=== PATIENT | female | born 1955 | race Caucasian/White ===

== ENCOUNTER 2024-06-18 18:21 | Emergency (ER) | payer MEDICARE, SELFPAY ==
--- NOTE | ~2024-06-18 | XR_ITS ---
EXAMINATION: XR CHEST CLINICAL INFORMATION: Syncope. COMPARISON: None available. TECHNIQUE: Portable AP view of the chest was obtained. FINDINGS: No significant abnormality is noted involving the heart, lungs, mediastinum, bony thorax or soft tissues. XR/XR chest 1V IMPRESSION: Unremarkable examination. Electronically signed by: Kingston Gayle MD 06/18/2024 08:05 PM EDT
--- NOTE | ~2024-06-18 | CT_ITS ---
EXAMINATION: CT HEAD WITHOUT CONTRAST CT CERVICAL SPINE WITHOUT CONTRAST CLINICAL INFORMATION: Syncope. Fall. COMPARISON: None TECHNIQUE: CT of the head and cervical spine were performed without intravenous contrast. Multiplanar reformats were rendered and reviewed. This CT examination was performed using dose optimization techniques as appropriate, variously including the following: *Automated exposure control *Adjustment of mA and/or kV according to patient size (this includes techniques or standardized protocols for targeted exams where dose is matched to indication/reason for exam; i.e. extremities or head) *Use of iterative reconstruction technique DLP: 802 mGy-cm. FINDINGS: CT head: No intracranial hemorrhage, large infarction, or mass lesion is seen. Mild diffuse cortical atrophy. No extra-axial collection is appreciated. The ventricles are normal in size and configuration without evidence of hydrocephalus. The visualized paranasal sinuses and mastoid air cells are clear. Bilateral lens extractions. CT cervical spine: The vertebral body heights appear maintained. No cervical spine fracture is seen. The cervical alignment appears normal. Mild disc degenerative change and bilateral neuroforaminal narrowing most notable at C5-C7, worse on the right. Multilevel facet degenerative changes. The paraspinal soft tissues appear within normal limits. The partially imaged lung apices appear clear. CT/CT head/brain wo IV con IMPRESSION: CT head: No acute intracranial finding. CT cervical spine: No cervical spine fracture or traumatic malalignment identified. Electronically signed by: Kingston Gayle MD 06/18/2024 08:53 PM EDT
--- NOTE | ~2024-06-18 | CT_ITS ---
EXAMINATION: CT HEAD WITHOUT CONTRAST CT CERVICAL SPINE WITHOUT CONTRAST CLINICAL INFORMATION: Syncope. Fall. COMPARISON: None TECHNIQUE: CT of the head and cervical spine were performed without intravenous contrast. Multiplanar reformats were rendered and reviewed. This CT examination was performed using dose optimization techniques as appropriate, variously including the following: *Automated exposure control *Adjustment of mA and/or kV according to patient size (this includes techniques or standardized protocols for targeted exams where dose is matched to indication/reason for exam; i.e. extremities or head) *Use of iterative reconstruction technique DLP: 802 mGy-cm. FINDINGS: CT head: No intracranial hemorrhage, large infarction, or mass lesion is seen. Mild diffuse cortical atrophy. No extra-axial collection is appreciated. The ventricles are normal in size and configuration without evidence of hydrocephalus. The visualized paranasal sinuses and mastoid air cells are clear. Bilateral lens extractions. CT cervical spine: The vertebral body heights appear maintained. No cervical spine fracture is seen. The cervical alignment appears normal. Mild disc degenerative change and bilateral neuroforaminal narrowing most notable at C5-C7, worse on the right. Multilevel facet degenerative changes. The paraspinal soft tissues appear within normal limits. The partially imaged lung apices appear clear. CT/CT cervical spine wo IV con IMPRESSION: CT head: No acute intracranial finding. CT cervical spine: No cervical spine fracture or traumatic malalignment identified. Electronically signed by: Kingston Gayle MD 06/18/2024 08:53 PM EDT
[2024-06-18 18:35] VITALS: BP 153/86; BP 69/35; PULSE 50; PULSE 67; RESP 18; TEMP 36.6; O2SAT 94; O2SAT 97; BMI 22.5
[2024-06-18 18:35] LABS: Glucose, Whole Blood 85 mg/dL (60-115)
--- NOTE | 2024-06-18 18:41 | ECG_ITS ---
Test Reason : SYNCOPE Blood Pressure : / mmHG Vent. Rate : 055 BPM Atrial Rate : 055 BPM P-R Int : 198 ms QRS Dur : 090 ms QT Int : 442 ms P-R-T Axes : 078 055 058 degrees QTc Int : 422 ms Sinus bradycardia Otherwise normal ECG No previous ECGs available Referred By: Bill Padilla Electronically Signed By:OSWALDO BATISTA
[2024-06-18] MEDS: 0.9 % Sodium Chloride 1,000 ML 999 ML IV (19:28)
[2024-06-18 19:30] VITALS: PULSE 58; O2SAT 100
[2024-06-18 19:37] VITALS: BP 143/72; BP 151/84; PULSE 53; PULSE 55
[2024-06-18 19:38] VITALS: BP 155/81; PULSE 58
--- NOTE | 2024-06-18 19:54 | ED.SYNCOPE ---
HPI - Syncope General Chief Complaint: Syncope Stated Complaint: syncopal episode Time Seen by Provider: 06/18/24 18:33 Source: patient, family and EMS Mode of arrival: EMS Limitations: no limitations History of Present Illness ED Provider: DR. Padilla HPI narrative: 68-year-old female was at her daughter's wedding today patient stated that she did not eat or drink anything since 11:00 today and has been exciting day for her, patient sustained a syncopal episode at the wedding today after she swiftly 10 round to talk to somebody causing her to fall down and strike her head to the lower, lasted for few seconds and patient after the regained her full consciousness, patient brought in by ambulance for full evaluation after, patient declined taking any anticoagulation, initially found to be hypotensive by EMS, patient started to improve in route, no chest pain, no shortness of breath, no headache, no neck pain, no weakness, no numbness. Past medical history is significant for hypothyroidism no significant history of cardiac disease or hypertension or diabetes, Blood sugar was 82 at the scene. Related Data Allergies Allergy/AdvReac Type Severity Reaction Status Date / Time erythromycin base Allergy Unknown Verified 06/18/24 18:52 Review of Systems Review of Systems: all other systems are reviewed and are negative Constitutional: Reports as per HPI and Reports no additional constitutional complaints Eyes: Reports as per HPI and Reports no additional eye complaints Reports system reviewed and no additional complaints, except as documented Cardiovascular: Reports as per HPI and Reports no additional cardiovascular complaints Respiratory: Reports as per HPI and Reports no additional respiratory complaints Gastrointestinal: Reports as per HPI and Reports no additional gastrointestinal complaints Genitourinary: Reports no additional female genitourinary complaints Musculoskeletal: Reports no additional musculoskeletal complaints Skin/Breast: Reports system reviewed and no additional complaints, except as docu Psychiatric: Reports no additional psychiatric complaints Endocrine: Reports no additional endocrine complaints Hematologic/Lymphatic: Reports no additional hematologic/lymphatic complaints Allergic/Immunologic: Reports no additional allergic/immunologic complaints Reports system reviewed and no additional complaints, except as documented and Reports Abnormal speech present [facility] Social History Social History Advance Directives: Yes Advance Directives Information Provided: No Advance Directives on File: No Physical Exam Vital Signs: Vital Signs: Last Vital Signs Temp 97.9 F 06/18/24 18:35 Pulse 58 06/18/24 19:38 Resp 18 06/18/24 18:35 BP 155/81 H 06/18/24 19:38 Pulse Ox 97 06/18/24 18:35 O2 Del Method Room Air 06/18/24 18:35 BMI result Body Mass Index 22.5 Vital signs have been reviewed and appear to be correct. Blood pressure elevated. Heart rate normal. Respiratory rate normal. Temperature normal. Oxygen saturation normal. Appearance: Alert. Oriented X3. No acute distress. Head: Normal external exam. Normocephalic. Atraumatic. No Gruber signs noted. No raccoon eyes noted Eyes: PERRLA. EOMI. Conjunctiva and sclera normal. Eyelids normal. ENT: TM's Normal. Pharynx normal. Uvula midline. Moist mucous membranes. No trismus noted. No drooling noted. No muffled voice noted. Neck: Normal inspection. Neck supple. FROM. No adenopathy. Thyroid Normal. No meningeal signs. No neck mass noted. CVS: Normal heart rate and rhythm. Heart sound normal. No murmurs noted. Pulses normal throughout. Respiratory: No respiratory distress. Painless inspiration. Breath sounds normal. No wheezes/rales/rhonchi noted. Chest nontender. No accessory muscle usage noted or decreased air movement noted. Abdomen: Soft and nontender. Bowel sounds normal in all 4 quadrants. No distention noted. No organomegaly noted. No visible injury noted. Back: No CVA tenderness. Full range of motion noted. Skin: Skin warm and dry. Normal skin color. Normal skin turgor. No rashes/lesions/lacerations noted. Extremities: No lower extremity edema. Extremities exhibit normal range of motion. Extremities nontender. Neuro: Oriented X 3. Cranial nerve exam: II-XII are grossly intact No motor deficit. No sensory deficit. Reflexes normal. Course Reevaluation(s) Reevaluation #1: 68-year-old female came in after sustained a syncopal episode at her daughter's wedding, workup today was unremarkable, initial blood pressure by EMS at the scene was 69/35 that improved after IV fluids in the emergency department. Labs are unremarkable, no EKG ischemic changes. Patient's symptoms is likely secondary to decreased p.o. intake all day today. Patient was also positive for COVID-19 infection. Time: 21:00 Medications Administered Discontinued Medications Generic Name Dose Route Start Last Admin Trade Name [place] PRN Reason Stop Dose Admin Sodium Chloride 1,000 mls @ 999 mls/hr 06/18/24 18:41 06/18/24 19:28 Ns IV 06/18/24 19:41 999 mls/hr .Q1H1M ONE Administration Medical Decision Making Differential Diagnosis Differential Diagnoses: The differential diagnosis associated with the presentation includes ( ACS, intracranial bleed, cervical spine injury, pneumonia, pneumothorax, electrolyte derangement, dehydration, severe anemia.) Admission/Observation Consideration of admission/observation: Escalation of care including admission/observation considered Lab Data MDM Lab Attestation statement: I reviewed the patient's lab results. 06/18/24 19:56 06/18/24 19:56 Labs: Lab Results 06/18/24 06/18/24 06/18/24 Range/Units 18:30 19:56 19:57 WBC 14.4 H (4.8-10.8) X10*3/uL RBC 4.15 L (4.20-5.50) X10*6/uL Hgb 13.1 (12.0-16.0) g/dl Hct 39.1 (37.0-47.0) % MCV 94.2 (80.0-98.0) fL MCH 31.6 (27.0-33.0) pg MCHC 33.5 (31.0-35.0) g/dl RDW 14.7 (11.0-16.0) % Plt Count 230 (160-400) X10*3/uL MPV 9.1 L (9.4-12.3) fL Immature Gran % (Auto) 0.3 (0.0-0.4) % Neut % (Auto) 85.6 H (45-73) % Lymph % (Auto) 8.4 L (20-40) % Mineral % (Auto) 4.9 (2-11) % Eos % (Auto) 0.5 (0-4) % Baso % (Auto) 0.3 (0-2) % Lymph # (Auto) 1.2 (1.2-4.9) X10*3/uL Mineral # (Auto) 0.7 (0.1-1.2) X10*3/uL Eos # (Auto) 0.1 (0.0-0.4) X10*3/uL Baso # (Auto) 0.0 (0.0-0.2) X10*3/uL Abs Immat Gran (auto) 0.04 H (0.00-0.03) X10*3/uL Absolute Neuts (auto) 12.3 H (2.0-8.3) x10*3/uL Absolute Nucleated RBC 0.000 (0.0-0.012) X10*3/uL Nucleated RBC % (auto) 0.0 (0.0-0.2) /100WBC Sodium 141 (135-145) mmol/L Potassium 3.8 (3.3-5.1) mmol/L Chloride 107 (96-108) mmol/L Carbon Dioxide 26 (22-29) mmol/L Anion Gap 12 (12-20) BUN 13 (9-16) mg/dL Creatinine 0.72 (0.5-1.4) mg/dL Estim Creat Clear Calc 55.6 Estimated GFR > 60 POC Glucose 85 (60-115) mg/dL Random Glucose 109 (60-115) mg/dL Calcium 8.4 (8.4-10.2) mg/dL Total Bilirubin 0.3 (0.0-1.0) mg/dL Direct Bilirubin 0.1 (0.0-0.5) mg/dL AST 22 (5-31) U/L ALT 24 (0-31) U/L Alkaline Phosphatase 55 (39-117) U/L Troponin I High Sens < 2.7 (<3.5-17.0) ng/L B-Natriuretic Peptide 73 (<100) pg/mL Total Protein 6.5 (6.5-8.0) g/dL Albumin 4.1 (3.5-5.0) g/dL Lipase 17 (8-78) U/L Urine Color Yellow Urine Appearance Clear Urine pH 7.0 (5.0-9.0) Ur Specific Valentine 1.010 (1.005-1.025) Urine Protein Negative (Neg-Trace) mg/dL Urine Glucose (UA) Negative (Negative) mg/dL Urine Ketones Negative (Negative) mg/dL Urine Blood Negative (Negative) Urine Nitrite Negative (Negative) Ur Leukocyte Esterase Negative (Negative) Influenza Type A (PCR) NEGATIVE (Negative) Influenza Type B (PCR) NEGATIVE (Negative) RSV RNA Qual (PCR) NEGATIVE (Negative) SARS-CoV-2 RNA (RT-PCR) POSITIVE A (Negative) Independent Interpretation I performed an independent interpretation of an: Plain X-Ray ( Chest: No acute intrathoracic pathology.) and CT Scan ( Head/cervical CT: No acute pathology.) Radiology Impression Discussion of test interpretation with radiology: I have reviewed the radiologist's reading. Discharge Plan Discharge Clinical Impression: Dehydration, Syncope due to orthostatic hypotension, COVID-19 Patient Disposition: Home, Self-Care Instructions: Dehydration (ED), COVID-19 (Coronavirus Disease 2019) (ED) Print Language: Kazakh
[2024-06-18 20:05] LABS: MANUAL DIFF FLAG NO
[2024-06-18 20:08] LABS: Appearance Urine Clear; Color Urine Yellow; Glucose Urine UA Negative (Negative); Leukocyte Esterase Urine Negative (Negative); Nitrite Urine Negative (Negative); Urine Blood Negative (Negative); Urine Ketones Negative (Negative); Urine Protein Negative (Neg-Trace)
[2024-06-18 20:11] LABS: Basophils Percent Auto 0.3 % (0-2); Eosinophils Absolute Auto 0.1 X10*3/uL (0.0-0.4); Eosinophils Percent Auto 0.5 % (0-4); Hematocrit 39.1 % (37.0-47.0); Hemoglobin 13.1 g/dl (12.0-16.0); Imm Gran Abs Auto 0.04 X10*3/uL (0.00-0.03); Imm Gran Pct Auto 0.3 % (0.0-0.4); Lymphocytes Absolute Auto 1.2 X10*3/uL (1.2-4.9); Lymphocytes Percent Auto 8.4 % (20-40); Mean Corpuscular HGB Conc 33.5 g/dl (31.0-35.0); Mean Corpuscular Hemoglobin 31.6 pg (27.0-33.0); Mean Corpuscular Volume 94.2 fL (80.0-98.0); Mean Platelet Volume 9.1 fL (9.4-12.3); Monocytes Absolute Auto 0.7 X10*3/uL (0.1-1.2); Monocytes Percent Auto 4.9 % (2-11); Neutrophils Absolute Auto 12.3 x10*3/uL (2.0-8.3); Neutrophils Percent Auto 85.6 % (45-73); Platelet Count 230 X10*3/uL (160-400); Red Blood Count 4.15 X10*6/uL (4.20-5.50); Red Cell Distribution Width 14.7 % (11.0-16.0); White Blood Count 14.4 X10*3/uL (4.8-10.8)
--- OUTSIDE RECORDS SUMMARY | 2024-06-18 20:16 | XMS_ITS | Continuity of Care Document ---
Author Organization [facility] Address [address] [place] [address]- Care Team Providers Care Grass Farm Laborer Name Role Phone Gem MCGUIRE, Amy Vargas Primary Care Physician Encounter [facility] Date(s): 11/07/21 - 12/07/21 [facility] [address] [place], [place] [address] Attending Physician: Admtr, Ya Admitting Physician: AdmtrYa Referring Physician: Admtr, [id number] Allergies, Adverse Reactions, Alerts Substance Reaction Severity Status erythromycin Active Other Environmental Allergy Active Immunizations Given and Recorded Vaccine Date Status Refusal Reason influenza virus vaccine, inactivated 06/25/17 Give n influenza virus vaccine, inactivated 1 06/10/16 Re corded influenza virus vaccine, inactivated 2 07/14/15 Re corded influenza virus vaccine, inactivated 05/29/14 Mac rded influenza virus vaccine, inactivated 3 07/04/08 Gi jordin influenza virus vaccine, inactivated 4 08/30/07 Gi jordin tetanus/diphtheria/pertussis, acel(Tdap) 09/03/11 Recorded Pneumococcal Poly (PPV23) (oldterm) 07/23/05 Recor ded 1Result Comment: [06/12/2016] [facility] 3Admin Note: ID, Heavy Mario Alberto of [employer] admistered @ [facility] 4Admin Note: [employer] manufacturers. no contraindications per patient Medications ascorbic acid 1000 mg oral tablet TAKE 1 TABLET DAILY., 01/29/15 10:32:00 Start Date: 01/29/15 Status: Ordered aspirin 81 mg oral tablet See Instructions, 1 tablet By Mouth once a week, 0 Refills, Maintenance, 04/14/16 11:08:46 Start Date: 04/14/16 Status: Ordered B-Complex with B-12 oral tablet TAKE 1 TABLET DAILY., 06/13/14 10:53:00 Start Date: 06/13/14 Status: Ordered calcium and vitamin D combination 600 mg-200 u oral tablet 1, tablet, By Mouth, Daily, 0 Refills Start Date: 01/10/07 Status: Ordered Lidoderm 5% film 1 patch, Topically, Daily, # 5 patch, 0 Refills, Maintenance, 07/09/18 10:10:48 EDT Start Date: 07/09/18 Stop Date: 07/14/18 Status: Ordered ProAir HFA 90 mcg/inh inhalation aerosol with adapter 1 puffs, Inhalation, 4 times a day, PRN for wheezing, # 8.5 Gm, 1 Refills, Maintenance, 09/06/15 15:18:00, Aerosol, 1 puffs Inhalation 4 times a day,PRN:for wheezing Start Date: 09/06/15 Status: Ordered Problem List Condition Effective Dates Status Health Status Inform ant Asthma(Confirmed) Active Back pain(Confirmed) 1 Active Bilateral cataracts(Confirmed) Active Depression(Confirmed) Active Spinal disease(Confirmed) Active 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 Familial tremor(Confirmed) Active Generalized anxiety disorder(Confirmed) Active Hypercholesterolemia(Confirmed) Active Hypothyroidism(Confirmed) Active Impaired fasting glycaemia(Confirmed) Active Low back pain(Confirmed) Active 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) Active Encounter for health mainten ance examination(Confirmed) Active Migraine(Confirmed) Active Nephrolithiasis(Confirmed) Active Stool guaiac positive(Confirmed) Active Postmenopausal status(Confirmed) Active PTSD (post-traumatic stress disorder)(Confirmed) Active Preoperative clearance(Confirmed) Active Right sided sciatica(Confirmed) Active Stress(Confirmed) Active Tobacco abuse(Confirmed) Active Tobacco dependence due to cigarettes(Confirmed) Active Tobacco dependence due to cigarettes(Confirmed) Active Tremor(Confirmed) Active Vitamin d deficiency(Confirmed) Active 1s/p surgery L4-5 level Social History Social History Type Response Smoking Status Current every day mely balderas entered on: 07/09/18 Sex
--- OUTSIDE RECORDS SUMMARY | 2024-06-18 20:16 | XMS_ITS | Continuity of Care Document ---
Author Organization [facility] Address [address], [address], [address] [place] [id number]- Care Team Providers Care Mathematical Statistician Name Role Phone Gem MCGUIRE, Amy Vargas Primary Care Physician Encounter [facility] [place] Date(s): 07/04/22 - 08/03/22 [facility] [address], [address], [address] [place] [address] Attending Physician: Ya Ramirez Admitting Physician: AdmtrYa Referring Physician: Admtr, Ar8 [...] (oldterm) 07/23/05 Recor ded 1Result Comment: [06/12/2016] [facility] 3Admin Note: ID, [employer] Mario Alberto of [place] admistered @ [employer] [facility] 4Admin Note: [employer] manufacturers. [...] 0 Refills Start Date: 01/10/07 Status: Ordered citalopram 20 mg oral tablet 20 mg, 1, tablet, By Mouth, Daily, # 90 tablet, Refills 2, Tot. Refills 2, Maintenance, 04/25/22 10:41:00 EDT, Route to Pharmacy Electronically, [facility]/pharmacy #[id number], 155, cm, 05/06/21 9:26:00 EDT, Height Start Date: 04/25/22 Stop Date: 01/20/23 Status: Ordered clonazePAM 0.5 mg oral tablet 1 tablet = 0.5 mg, By Mouth, 3 times a day, # 90 tablet, 3 Refills, Maintenance, 07/29/22 12:10:00 EST, Tablet, [facility]/pharmacy #[id number], 155, cm, 05/06/21 9:26:00 EDT, Height Start Date: 07/29/22 Stop Date: 11/26/22 Status: Ordered diphenhydrAMINE 25 mg oral tablet 1 tablet = 25 mg, By Mouth, Daily at bedtime, PRN for insomnia, as needed for insomnia, # 90 tablet, 1 Refills, Maintenance, 07/29/22 12:10:00 EST, Tablet, [facility]/pharmacy #[id number], Partial fill upon patient request if the prescription is for a schedule II... Start Date: 07/29/22 Stop Date: 01/25/23 Status: Ordered Glucosamine & Chondroitin with MSM 0 Refills, Maintenance, 05/06/21 9:29:00 EDT, Partial fill upon patient request if the prescriptionis for a schedule II opioid drug. Start Date: 05/06/21 Status: Ordered levothyroxine 0.088 mg oral tablet 1 tablet = 88 mcg, By Mouth, Every other day, alternating with 75mcg, # 15 tablet, 3 Refills, Maintenance, 01/25/18 16:51:00 EDT Start Date: 01/25/18 Status: Ordered Lidoderm 5% film 1 patch, Topically, Daily, # 5 patch, 0 Refills, Maintenance, 07/09/18 10:10:48 EDT Start Date: 07/09/18 Stop Date: 07/14/18 Status: Ordered Melatonin 5 mg oral tablet 10 mgs, By Mouth, Daily at bedtime, # 60 tablet, 1 Refills, Maintenance, 10/26/19 16:00:00 EST, Tablet, [facility]/pharmacy #[id number], 155, cm, 07/14/18 15:47:00 EDT, Height, 53, kg, 07/14/18 15:47:00 EDT, Dry Weight Start Date: 10/26/19 Status: [facility] Ref[facility], Maintenance, Glucosamine HCI 1500 mg with MSM takes 2 tablets one time daily, 11/05/20 10:04:00 EST, Supply Start Date: 11/05/20 Status: Ordered primidone 50 mg oral tablet 1, tablet, By Mouth, 4 times a day, # 360 tablet, Refills 1, Tot. Refills 1, Maintenance, 05/06/21 10:22:00 EDT, Route to Pharmacy Electronically, [id number], 155, cm, 05/06/21 9:26:00 EDT, Height Start Date: 05/06/21 Status: Ordered ProAir HFA 90 mcg/inh inhalation aerosol with adapter 1 puffs, Inhalation, 4 times a day, PRN for wheezing, # 8.5 Gm, 1 Refills, Maintenance, 09/06/15 15:18:00, Aerosol, 1 puffs Inhalation 4 times a day,PRN:for wheezing Start Date: 09/06/15 Status: Ordered Reglan 10 mg oral tablet 1 tablet = 10 mg, By Mouth, Every 6 hours, PRN Nausea, # 10 tablet, 2 Refills, Maintenance, 10/31/19 16:07:00 EST, [facility]/pharmacy #[id number], 155, cm, 10/31/19 15:35:00 EST, Height, 53, kg, 07/14/18 15:47:00 EDT, Dry Weight Start Date: 10/31/19 Status: Ordered SUMAtriptan 50 mg oral tablet 1 tablet = 50 mg, By Mouth, Daily, PRN for migraine headache, may repeat dose after 2 hours up to amaximum of 2, # 9 tablet, 3 Refills, Maintenance, 05/06/21 10:22:00 EDT, Tablet, [id number], 155, cm, 05/06/21 9:26:00 EDT, Height Start Date: 05/06/21 Status: Ordered Problem List Condition Confirmation Course Effective Dates Status Health Status Informant Asthma Confirmed Active Back pain 1 Confirmed Active Bilateral cataracts Confirmed Active Depression Confirmed Active Spinal disease Confirmed Active 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 Active Familial tremor Confirmed Active Generalized anxiety disorder Confirmed Active Hypercholesterolemia Confirmed Active Hypothyroidism Confirmed Active Impaired fasting glycaemia Confirmed Active Low back pain Confirmed Active Major depressive disorder in partial remission Confirmed Active Encounter for health maintenance examination Confirmed Active Migraine Confirmed Active Nephrolithiasis Confirmed Active Stool guaiac positive Confirmed Active Postmenopausal status Confirmed Active PTSD (post-traumatic stress disorder) Confirmed Active Preoperative clearance Confirmed Active Right sided sciatica Confirmed Active Stress Confirmed Active Tobacco abuse Confirmed Active Tobacco dependence due to cigarettes Confirmed Active Tobacco dependence due to cigarettes Confirmed Active Tremor Confirmed Active Vitamin d deficiency Confirmed Active 1s/p surgery L4-5 level Social History Social History Type Response Smoking Status Current every day angelicaharshad entered on: 07/09/18 Sex Patient Care team information Care Team Personnel Name: Chanel See Position: [facility] RN Member Role: Primary Care Nurse Name: Amy Hayowod Position: [facility] RN Member Role: Primary Care Nurse Name: Amy Rabago MD Position: [facility] Outreach Member Role: PCP Address: Address: [address] [place], [place] [address] [place] [address]- Care Team Related Persons Name: JUMA ORTEGA Address: home [address] [place] [address] Name: JUMA BARAJAS Address: [address] [place] [address] Name: ZOHREH CORTEZ Address: home [address] [place] [address] Name: DAKOTA NIETO Address: home [address] [place] [address] Name: MARK KEARNEY Address: [address] [place] [address]
--- OUTSIDE RECORDS SUMMARY | 2024-06-18 20:16 | XMS_ITS | Continuity of Care Document ---
Author Organization [facility] Address Unknown Care Team Providers Care Traffic Police Officer Name Role Phone Gem MCGUIRE, Amy Vargas Primary Care Physician Encounter [facility] [place] Date(s): 12/18/21 - 01/17/22 [facility] Allergies, Adverse Reactions, Alerts Substance Reaction Severity [...] (oldterm) 07/23/05 Recor ded 1Result Comment: [06/12/2016] [facility] 2Location History: [facility] 3Admin Note: ID, Health: Elt Amrio Alberto of [facility] admistered @ [facility] [employer] [facility] 4Admin Note: [employer] manufacturers. 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
--- OUTSIDE RECORDS SUMMARY | 2024-06-18 20:16 | XMS_ITS | Continuity of Care Document ---
Author Organization [facility] Address [address] [place] [address]- Care Team Providers Care Legal Office Administrator Name Role Phone Amy Rabago MD Primary Care Physician [phone] Encounter [facility] Date(s): 08/09/21 - 12/07/21 [facility] [address] [place] [address]- Attending Physician: Benedicto Mobley MD Referring Physician: Amy Rabago MD Allergies, Adverse Reactions, Alerts Substance Reaction Severity [...] (oldterm) 07/23/05 Recor ded 1Result Comment: [06/12/2016] [facility] 3Admin Note: ID, Aristotle Circle admistered @ [facility] 4Admin Note: [employer] manufacturers. 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
--- OUTSIDE RECORDS SUMMARY | 2024-06-18 20:16 | XMS_ITS | Continuity of Care Document ---
Author Organization [facility] Address [address] [facility], [address] d Floor, [address] [place] [id number]- Care Team Providers Care Director Of Research [facility] Name Role Phone Amy Rabago MD Primary Care Physician [place] [facility] [place]): [place]/03/22 [facility] [address], [address], [address] [place] [id number] Attending Physician: Not on Staff, Attending MD Referring Physician: Amy Rabago MD Allergies, [...] 2Location History: [facility] 3Admin Note: ID, Biomed[employer] Mario Alberto of [place] admistered @ [facility] 4Admin Note: [employer] manufacturers. [...] 04/25/22 10:41:00 EDT, Route to Pharmacy Electronically, [facility]/pharmacy #[id number], 155, cm, 05/06/21 9:26:00 EDT, Height Start Date: 04/25/22 Stop Date: 01/20/23 Status: Ordered clonazePAM 0.5 mg oral tablet 1 tablet = 0.5 mg, By Mouth, 3 times a day, # 90 tablet, 3 Refills, Maintenance, 07/29/22 12:10:00 EST, [id number], [facility], cm, 05/06/21 9:26:00 EDT, Height Start Date: 07/29/22 Stop Date: 11/26/22 Status: Ordered diphenhydrAMINE 25 mg oral tablet 1 tablet = 25 mg, By Mouth, Daily at bedtime, PRN for insomnia, as needed for insomnia, # 90 tablet, 1 Refills, Maintenance, 07/29/22 12:10:00 EST, Tablet, [facility]/pharmacy #[id number], Partial fill upon patient [...] 1 Refills, Maintenance, 10/26/19 16:00:00 EST, Tablet, [facility]/pharmacy #[id number], 155, cm, 07/14/18 15:47:00 EDT, Height, 53, kg, 07/14/18 15:47:00 EDT, Dry Weight Start Date: 10/26/19 Status: Ordered Misc Rx Refills 0, Maintenance, Glucosamine HCI 1500 mg with MSM takes 2 tablets one time daily, 11/05/20 10:04:00 EST, Supply Start Date: 11/05/20 Status: Ordered primidone 50 mg oral tablet 1, tablet, By Mouth, 4 times a day, # 360 tablet, Refills 1, Tot. Refills 1, Maintenance, 05/06/21 10:22:00 EDT, Route to Pharmacy Electronically, [facility] #[id number], 155, cm, 05/06/21 9:26:00 EDT, Height Start [...] tablet, 2 Refills, Maintenance, 10/31/19 16:07:00 EST, [facility]/pharmacy #[id number], 155, cm, 10/31/19 15:35:00 EST, Height, 53, kg, 07/14/18 15:47:00 EDT, Dry Weight Start Date: 10/31/19 Status: Ordered SUMAtriptan 50 mg oral tablet 1 tablet = 50 mg, By Mouth, Daily, PRN for migraine headache, may repeat dose after 2 hours up to amaximum of 2, # 9 tablet, 3 Refills, Maintenance, 05/06/21 10:22:00 EDT, Tablet, [id number], 155, cm, 05/06/21 9:26:00 EDT, Height Start Date: 05/06/21 Status: Ordered Problem List Condition Confirmation Course Effective Dates Status Health Status Informant Asthma Confirmed Active Back pain 1 Confirmed Active Bilateral cataracts Confirmed Active Depression Confirmed Active Spinal disease Confirmed Active 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 [...] day mely balderas entered on: 07/09/18 Sex Patient Care team information Care Team Personnel Name: Chanel See Position: [facility] RN Member Role: Primary Care Nurse Name: Amy Haywood Position: [facility] RN Member Role: Primary Care Nurse Name: Amy Rabago MD Position: [facility] Outreach Member Role: PCP Address: Address: [address] [place], [place] [id number] [place] [address]- Care Team Related Persons Name: JUMA ORTEGA Address: home [address] [place] [address] Name: JUMA BARAJAS Address: home [address] [place] [address] Name: ZOHREH CORTEZ Address: home [address] [place] [address] Name: DAKOTA NIETO Address: [address] [place] [address] Name: MARK KEARNEY Address: home [address] [place] [address]
[2024-06-18 20:21] LABS: Alanine Aminotransferase 24 U/L (0-31); Albumin Level 4.1 g/dL (3.5-5.0); Alkaline Phosphatase 55 U/L (39-117); Anion Gap 12 (12-20); Aspartate Amino Transferase 22 U/L (5-31); Bilirubin Direct 0.1 mg/dL (0.0-0.5); Bilirubin Total 0.3 mg/dL (0.0-1.0); Blood Urea Nitrogen 13 mg/dL (9-16); Calcium 8.4 mg/dL (8.4-10.2); Carbon Dioxide 26 mmol/L (22-29); Chloride 107 mmol/L (96-108); Creatinine Clr Calc Pharmacy 55.6; Estimated Glomerular Filt Rate > 60; Glucose Random 109 mg/dL (60-115); Lipase 17 U/L (8-78); Potassium 3.8 mmol/L (3.3-5.1); Sodium 141 mmol/L (135-145); Total Protein 6.5 g/dL (6.5-8.0)
[2024-06-18 20:29] LABS: Troponin-I High Sensitivity < 2.7 ng/L (<3.5-17.0)
[2024-06-18 20:40] LABS: B Type Natriuretic Peptide 73 pg/mL (<100)
[2024-06-18 20:44] LABS: Influenza A PCR NEGATIVE (Negative); Influenza B PCR NEGATIVE (Negative); Resp Syncy Virus RNA Qual PCR NEGATIVE (Negative); SARS COV2 PCR INHOUSE POSITIVE (Negative)
[2024-06-18 21:30] VITALS: BP 155/81; PULSE 58; RESP 16; TEMP 36.6; O2SAT 100
== END 2024-06-18 21:30 | disposition home or self-care (01) ==
PROVIDERS: Emergency Provider Emergency Medicine; PCP Internal Medicine
DX: U07.1 COVID-19 (principal); E86.0 Dehydration; I95.1 Orthostatic hypotension; E03.9 Hypothyroidism, unspecified
CPT/HCPCS: 0241U; 36415; 70450; 71045; 72125; 80048; 80076; 81003; 82947; 83690; 83880; 84484; 85025; 93005; 96360; 99285